=== PATIENT | female | born 1985 | race Caucasian/White ===

== ENCOUNTER 2017-01-26 14:53 | Emergency (ER) | payer SELFPAY ==
[~2017-01-26] VITALS: Ht 162.6 cm; Wt 71.7 kg
[2017-01-26 14:55] VITALS: Ht 162.6 cm; Wt 71.7 kg
--- OUTSIDE RECORDS SUMMARY | 2017-01-26 14:57 | XMS REPORT ---
Author Author GENERATED, SYSTEM Organization Unknown Address Unknown Phone Unavailable Care Team Providers Care Logistics Planner Name Role Phone [facility] Unavailable Reason For Visit Chief Complaint ABD PAIN Social History Social History from 05/04/2016 3:55 PM:* Tobacco Use? : Current Everyday Smoker Functional Status Functional Status from 05/04/2016 4:42 PM:* LOC : Alert Functional Status from 05/04/2016 4:41 PM:* LOC : Alert Functional Status from 05/04/2016 3:43 PM:* LOC : Sedated Vital Signs Hospital Vital Signs from 05/04/2016 5:15 PM:* Temp : 97.6 * Systolic BP (mmHg) : 92 * Diastolic BP (mmHg) : 67 * Mean BP (mmHg) : 76 Hospital Vital Signs from 05/04/2016 5:00 PM:* Systolic BP (mmHg) : 94 * Diastolic BP (mmHg) : 73 * Mean BP (mmHg) : 82 Hospital Vital Signs from 05/04/2016 4:50 PM:* Systolic BP (mmHg) : 93 * Diastolic BP (mmHg) : 65 * Mean BP (mmHg) : 76 Hospital Vital Signs from 05/04/2016 4:15 PM:* Temp : 97.9 * Heart Rate : 54 * Resp Rate : 12 * Systolic BP (mmHg) : 104 * Diastolic BP (mmHg) : 74 * Mean BP (mmHg) : 81 * O2 Saturation (%) : 98 Hospital Vital Signs from 05/04/2016 4:10 PM:* Heart Rate : 58 * Resp Rate : 12 * Systolic BP (mmHg) : 104 * Diastolic BP (mmHg) : 72 * Mean BP (mmHg) : 83 * O2 Saturation (%) : 98 Hospital Vital Signs from 05/04/2016 4:05 PM:* Heart Rate : 64 * Resp Rate : 11 * Systolic BP (mmHg) : 109 * Diastolic BP (mmHg) : 73 * Mean BP (mmHg) : 84 * O2 Saturation (%) : 100 Hospital Vital Signs from 05/04/2016 4:00 PM:* Heart Rate : 53 * Resp Rate : 13 * Systolic BP (mmHg) : 103 * Diastolic BP (mmHg) : 69 * Mean BP (mmHg) : 79 * O2 Saturation (%) : 100 Hospital Vital Signs from 05/04/2016 3:55 PM:* Heart Rate : 60 * Resp Rate : 14 * Systolic BP (mmHg) : 103 * Diastolic BP (mmHg) : 63 * Mean BP (mmHg) : 80 * O2 Saturation (%) : 100 Hospital Vital Signs from 05/04/2016 3:50 PM:* Heart Rate : 74 * Resp Rate : 13 * Systolic BP (mmHg) : 108 * Diastolic BP (mmHg) : 68 * Mean BP (mmHg) : 83 * O2 Saturation (%) : 99 Hospital Vital Signs from 05/04/2016 3:45 PM:* Temp : 97.5 * Heart Rate : 75 * Resp Rate : 13 * Systolic BP (mmHg) : 102 * Diastolic BP (mmHg) : 65 * Mean BP (mmHg) : 78 * O2 Saturation (%) : 100 Hospital Vital Signs from 05/04/2016 1:56 PM:* Weight : 68.039/ kg * Height : 5/4 ft,in * Temperature : 97.8 F * Pulse : 58 * Respirations : 16 * BP : 106/52 Results Problems Encounter Diagnosis No relevant problems exist. Encounters Encounter Diagnosis No relevant problems exist. Plan of Care Follow-up Appointments from 05/04/2016 3:55 PM:* #1 Office appointment: : Dr. Schwartz * #1 Date/Time : 05/20/2016 9:00 AM * Address # 1 : [facility]: [facility] [place]- or Procedures No relevant procedures performed. Immunizations No immunizations administered or ordered. Hospital Course Hospital Discharge Instructions How to care for yourself at home from 05/04/2016 3:55 PM:* Discharge Activity : May Shower,Do not engage in sports, heavy work or heavy lifting until your physician gives permission * Do not drive or operate machinery for: : 24 hours or while taking pain medications * Discharge Diet : Diet as tolerated * Discharge Wound Care : Notify your physician if the following develops: redness, swelling, drainage or color of drainage changes, odor or increased pain. * Remove dressing in: : as needed * Call your doctor if: : Fever over 101 F or severe chills,You have persistent or worsening symptoms * Specific Discharge Teaching Instructions provided: : Yes * Specific Discharge Teaching Instructions Reviewed: : Other * Discharge on Warfarin : No Allergies, Adverse Reactions, Alerts * Prozac causes Hives. * No Latex Allergy. * No IV Contrast Allergy. Medication Medication reconciliation has not been performed.
--- OUTSIDE RECORDS SUMMARY | 2017-01-26 14:57 | XMS REPORT ---
Author Author FriendStefanie [facility] Address [address] [place], [place] [id number] Care Team Providers Care Supervisor [place] Name Role Phone FriendStefanie Unavailable [phone] PROBLEMS Type Condition ICD9-CM Code [id number] Code Onset Dates Condition Status SNOMED Code Problem Other specified symptom associated with female genital organs 625.8 Active Problem Acute serous otitis media 381.01 Active 447027098 Problem Nondependent tobacco use disorder 305.1 Active 958390856 Problem Screening examination for venereal disease V74.5 Active 643970303 Problem Acute upper respiratory infections of unspecified site 465.9 Active 30161812 Problem Unspecified vaginitis and vulvovaginitis 616.10 Active 416218295 Problem Rosacea 695.3 Active 132109469 Problem Health examination of defined subpopulation V70.5 Active 179365824 Problem Depressive disorder, not elsewhere classified 311 Active 21906716 Problem Dermatophytosis of nail 110.1 Active 608723071 ALLERGIES Unknown Allergies SOCIAL HISTORY No smoking Hx information available PLAN OF CARE VITAL SIGNS MEDICATIONS Unknown Medications RESULTS No Results PROCEDURES No Known procedures IMMUNIZATIONS No Known Immunizations
--- OUTSIDE RECORDS SUMMARY | 2017-01-26 14:57 | XMS REPORT ---
Author Author GENERATED, SYSTEM Organization Unknown Address Unknown Phone Unavailable Care Team Providers Care Tire Repairer Name Role Phone [facility] Unavailable Reason For Visit Chief Complaint NECK AND SHOULDER PAIN Social History Functional Status Vital Signs Results CT Scan from 08/14/2014 10:55 AMCT SPINE CERVICAL W/O CONTRAST DATE OF EXAM: Aug 14 2014 11:23AM Proc: CT 0051 - CT SPINE CERVICAL W/O CONTRAST CPT Code(s): 55980-; ; ; INDICATION / CLINICAL HISTORY: Neck pain. COMPARISON: None. FINDINGS: The cervical vertebral bodies are normal in height and alignment. There is no acute fracture. There is reversal of the normal cervical lordosis. This is likely positional in nature, although other etiologies, most commonly muscle spasm could also be considered. IMPRESSION: Straightening of normal cervical lordosis without acute findings. CT SPINE THORACIC W/O CONTRAST DATE OF EXAM: Aug 14 2014 11:26AM Proc: CT 0072 - CT SPINE THORACIC W/O CONTRAST CPT Code(s): 90484-; ; ; INDICATION / CLINICAL HISTORY: Back and neck pain. COMPARISON: None. FINDINGS: The thoracic vertebral bodies are normal in height and alignment. There is no acute fracture. There are no significant degenerative changes. IMPRESSION: No acute osseous abnormality. Problems Encounter Diagnosis No relevant problems exist. Encounters Encounter Diagnosis No relevant problems exist. Plan of Care Procedures No relevant procedures performed. Immunizations No immunizations administered or ordered. Hospital Course Hospital Discharge Instructions Allergies, Adverse Reactions, Alerts * Latex Allergy has not been assessed. * IV Contrast Allergy has not been assessed. Medication Medication reconciliation has not been performed.
--- OUTSIDE RECORDS SUMMARY | 2017-01-26 14:57 | XMS REPORT ---
Author Author GENERATED, SYSTEM Organization Unknown Address Unknown Phone Unavailable Care Team Providers Care Registration Representative Name Role Phone [facility] Unavailable Reason For Visit Chief Complaint BITE ON L KNEE Social History Functional Status Vital Signs Results Problems Encounter Diagnosis No relevant problems [...]
--- NOTE | 2017-01-26 15:05 | ERPDOC ---
Departure Disposition Decision Date: January 26, 2017 Disposition Decision Time: 15:17 (CICI BENDER APRN) Disposition: 01 DISCHARGED HOME, SELF-CARE Impression Impression (CICI BENDER APRN) Impression: Primary Impression: Insect bite Condition: Stable Seen By: Mid-level only (CICI BENDER APRN) Patient Instructions: Insect Bite or Sting (ED) Problems/Meds/Labs Reviewed?: Yes Medications reviewed and manag: Yes (CICI BENDER APRN) Additional Instructions: 1. HAVE YOUR HOME REEVALUATED FOR BED BUGS 2. APPLY ITCH CREAM TO SITES NEEDED 3. YOU MAY TAKE BENADRYL NEEDED FOR ITCH. 4. STOP THE EPHEDRINE YOU HAVE BEEN TAKING-THIS COULD CAUSE SOME ABNORMAL SKIN SENSATIONS Follow up care ordered?: Yes Mental Status: Alert (CICI BENDER APRN) HPI - General Medical General Stated Complaint: PRESSURE IN HEAD,BLURRY VISION, Time Seen by Provider: 15:05 Source: patient Exam Limitations: no limitations (CICI BENDER APRN) Time Seen by Provider: 15:05 (MAXIMO JAMIES DO) HPI - General Medical Initial Comments Aparna is a 31 year old female who comes to ER stating "Don't think I'm crazy." Reports feeling something crawling on her head and ears and biting her. Went to [facility] and took a banana drink for pinworms per the recommendation of their pharmacist. Also taking Ephedrine a diet supplement for 3 months. Had embedded developer come spray home, found bed bugs. Sprayed. Retreated. Continues to feel bites. Occurred At: home Onset: Rapid Duration: 1 week Hx of Similar Symptoms: Yes (CICI BENDER APRN) Allergies: Coded Allergies: No Known Allergies (Unverified , 01/26/17) Past History Past Medical History Pt denies signifigant PMH (CICI BENDER APRN) Surgical History General: gallbladder (CICI BENDER APRN) Social History Substance Use Type: does not use Alcohol Intake: none Marital Status: Current Occupational Status: employed (CICI BENDER APRN) Review of Systems Constitutional Constitutional: see HPI (CICI BENDER APRN) Integumentary Skin: sores (CICI BENDER APRN) All other Systems All Other Systems: Reviewed and Negative (CICI BENDER APRN) Physical Exam General General Nourishment: well nourished, well developed, appears stated age, no acute distress (CICI BENDER APRN) Vitals and Pain Weight: Kilograms: Height (feet): Height (inches): Triage Pain Scale: (CICI BENDER APRN) Eyes (brief) Eyes Brief: found: PERRL, not found: scleral icterus (CICI BENDER APRN) ENMT (brief) ENMT Brief: FOUND: mucosa moist (CICI BENDER APRN) Respiratory (brief) Respiratory: FOUND: clear all chowdary, equal bilaterally (CICI BENDER APRN) Cardiovascular (brief) Cardiac: FOUND: regular rate, regular rhythm (CICI BENDER APRN) Integumentary (brief) Integumentary Brief: FOUND: dry, other (few scattered excoriated lesions to neckline. no lice seen. no rashes), pink, warm (CICI BENDER APRN) Psychiatric (brief) Psychiatric Brief: FOUND: alert, attentive, oriented, NOT FOUND: normal affect (anxious) (CICI BENDER APRN) Progress Progress Progress Patient was offered CT scan of the head which she declined in the ED today. (MAXIMO JAIMES DO) CICI BENDER APRN January 26, 2017 15:04 MAXIMO JAIMES DO January 26, 2017 15:47
--- OUTSIDE RECORDS SUMMARY | 2017-01-26 15:10 | XMS REPORT ---
Author Author GENERATED, SYSTEM Organization Unknown Address Unknown Phone Unavailable Care Team Providers Care Air Turning Machine Feeder Name Role Phone [facility] Unavailable Reason For Visit Chief Complaint [...]
--- OUTSIDE RECORDS SUMMARY | 2017-01-26 15:10 | XMS REPORT ---
Author Author GENERATED, SYSTEM Organization Unknown Address Unknown Phone Unavailable Care Team Providers Care Station Inspector Name Role Phone [facility] Unavailable Reason For Visit Chief Complaint ABD [...] 9:00 AM * Address # 1 : [facility]: [facility] [place]- or Procedures No relevant procedures performed. Immunizations [...]
--- OUTSIDE RECORDS SUMMARY | 2017-01-26 15:10 | XMS REPORT ---
Author Author GENERATED, SYSTEM Organization Unknown Address Unknown Phone Unavailable Care Team Providers Care Slimer Name Role Phone [facility] Unavailable Reason For Visit Chief Complaint NECK AND SHOULDER PAIN Social History Functional Status Vital Signs Results CT Scan from 08/14/2014 10:55 AMCT SPINE CERVICAL W/O CONTRAST DATE OF EXAM: Aug 14 2014 11:23AM Proc: CT 0051 - CT SPINE CERVICAL W/O CONTRAST CPT Code(s): 16142-; ; ; INDICATION / CLINICAL HISTORY: Neck [...] CT SPINE THORACIC W/O CONTRAST CPT Code(s): 49459-; ; ; INDICATION / CLINICAL HISTORY: Back [...]
[2017-01-26 15:25] VITALS: BP 131/82; PULSE 116; RESP 16; TEMP 97.5; O2SAT 99
[2017-01-26] MEDS ORDERED: IBUP-1724 PO (15:26)
[2017-01-26] MEDS ORDERED: MULT-933 PO (15:26)
[2017-01-26] MEDS ORDERED: EPHEDRINE PO (15:26)
== END 2017-01-26 15:25 | disposition home or self-care (01) ==
LOC: ED 14:53
DX: S10.96XA Insect bite of unspecified part of neck, initial encounter (principal); W57.XXXA Bitten or stung by nonvenomous insect and other nonvenomous arthropods, initial encounter; Y93.9 Activity, unspecified; Y92.009 Unspecified place in unspecified non-institutional (private) residence as the place of occurrence of the external cause; Y99.8 Other external cause status